=== PATIENT | female | born 1970 | race Caucasian/White ===

== ENCOUNTER 2019-05-28 14:41 | Emergency (ER) | payer SELFPAY ==
[2019-05-28] MEDS ORDERED: ACETAMINOPHEN 1000 MG/100 ML VIAL (NON FORMULARY) IVPB ONE (14:55)
[2019-05-28] MEDS ORDERED: SODIUM CHLORIDE 1,000 ML IV STA (14:55)
[2019-05-28] MEDS ORDERED: ONDANSETRON 4 MG/2 ML VIAL IVPUSH ONE (14:55)
[2019-05-28 14:56] VITALS: BP 99/67; PULSE 106; TEMP 99; BMI 28.3
--- NOTE | 2019-05-28 14:59 | PDOC ---
Rapid Medical Evaluation Chief Complaint: Pain Time Seen by Provider: 05/28/19 14:52 Medical Evaluation: Allergies Allergy/AdvReac Type Severity Reaction Status Date / Time No Known Allergies Allergy Verified 05/28/19 14:53 Vital Signs Temp Pulse Resp BP Pulse Ox 99.0 F 106 H 16 99/67 97 05/28/19 14:53 05/28/19 14:53 05/28/19 14:53 05/28/19 14:53 05/28/19 14:53 05/28/19 14:58 Pt c/o: low abd pain with n/v/d/ and chills , hx of "twisted bowel" in 2011 Pt on brief exam: low abd tenderness BP 99/67, Pt ordered for: labs, ivf, iv tylenol, abd ct, and zofran Pt to proceed to the ED Discharge Disposition - Diagnosis Abdominal pain - Discharge Dispostion Disposition: LEFT BEFORE MICHELLE OLGUIN - Referrals - Patient Instructions - Post Discharge Activity
== END 2019-05-28 16:00 | disposition left against medical advice (07) ==
LOC: JER 14:41
DX: Z53.21 Procedure and treatment not carried out due to patient leaving prior to being seen by health care provider (principal)
CPT/HCPCS: 99281-25